=== PATIENT | female | born 1985 | race Caucasian/White ===

== ENCOUNTER 2018-06-10 12:09 | Emergency (ER) | payer OTHER ==
[2018-06-10] MEDS ORDERED: fentaNYL 100 MCG/2 ML INJ ONE (12:38)
[2018-06-10] MEDS ORDERED: ONDANSETRON 4 MG/2 ML VIAL ONE (12:38)
[2018-06-10] MEDS ORDERED: ONDANSETRON 4 MG/2 ML VIAL IVP ONE (12:46)
[2018-06-10] MEDS ORDERED: fentaNYL 100 MCG/2 ML INJ IVP ONE (12:46)
[2018-06-10] MEDS ORDERED: HYDROmorphONE/DILAUDID 2 MG/ML INJ IVP ONE (13:42)
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
[2018-06-10] MEDS ORDERED: KETOROLAC 15 MG/1 ML SDV IVP ONE (13:49)
[2018-06-10] MEDS ORDERED: KETOROLAC 15 MG/1 ML SDV ONE (13:57)
[2018-06-10 15:38] VITALS: BP 141/99
== END 2018-06-10 15:39 | disposition home or self-care (01) ==
DX: S30.23XA Contusion of vagina and vulva, initial encounter (principal); V18.0XXA Pedal cycle driver injured in noncollision transport accident in nontraffic accident, initial encounter; Y93.55 Activity, bike riding
CPT/HCPCS: 96374; J1170; J1885; J2405; J3010